=== PATIENT | male | born 1945 | race Caucasian/White ===

== ENCOUNTER → 2023-12-01 08:01 | Outpatient (REF) | payer OTHER, SELFPAY | LOC: HWRCS 08:01 | PROVIDERS: ATTENDING PHYSICIAN Internal Medicine; FAMILY PHYSICIAN Nurse Practitioner Adult Health | DX: I10 Essential (primary) hypertension (principal); I25.10 Atherosclerotic heart disease of native coronary artery without angina pectoris; Z95.5 Presence of coronary angioplasty implant and graft; I35.0 Nonrheumatic aortic (valve) stenosis | CPT/HCPCS: 93306 ==

== ENCOUNTER → 2023-12-07 08:46 | Outpatient (REF) | payer OTHER, SELFPAY ==
[2023-12-07 10:58] LABS: Blood Urea Nitrogen 19 mg/dl (9-20); Calcium 9.4 mg/dl (8.4-10.2); Carbon Dioxide 29 mmol/L (22-30); Chloride 103 mmol/L (98-107); Glucose 101 mg/dl (70-99); Potassium 4.2 mmol/L (3.5-5.1); Sodium 139 mmol/L (135-145); eGFR > 60.00
== END ==
LOC: REG 08:46
PROVIDERS: ATTENDING PHYSICIAN Specialist
DX: Z01.818 Encounter for other preprocedural examination (principal)
CPT/HCPCS: 36415; 80048

== ENCOUNTER → 2024-06-10 16:49 | Outpatient (REF) | payer OTHER, SELFPAY | LOC: RAD 16:49 | PROVIDERS: ATTENDING PHYSICIAN Nurse Practitioner Adult Health | DX: R05.1 Acute cough (principal) | CPT/HCPCS: 71046 ==

== ENCOUNTER → 2024-08-08 11:00 | Outpatient (REF) | payer OTHER, SELFPAY | LOC: RAD 11:00 | PROVIDERS: ATTENDING PHYSICIAN Nurse Practitioner Adult Health | DX: J18.9 Pneumonia, unspecified organism (principal) | CPT/HCPCS: 71046 ==

== ENCOUNTER → 2025-03-25 09:49 | Outpatient (REF) | payer MEDICARE, SELFPAY | LOC: RAD 09:49 | PROVIDERS: ATTENDING PHYSICIAN Nurse Practitioner Adult Health | DX: Z91.81 History of falling (principal); R07.89 Other chest pain | CPT/HCPCS: 71101 ==